=== PATIENT | male | born 1955 | race Hispanic/Latino ===

== ENCOUNTER → 2019-03-03 | Outpatient (RCR) | payer BC | LOC: PT 07:35 | PROVIDERS: ATTEND Neurological Surgery | DX: M47.897 Other spondylosis, lumbosacral region (principal) ==

== ENCOUNTER 2022-07-22 08:04 | Emergency (ER) | payer BC, MEDICARE ==
[~2022-07-22] VITALS: Ht 170.2 cm; Wt 87.3 kg
[2022-07-22] MEDS ORDERED: LOSARTAN POTASS25 MG PO (08:24)
[2022-07-22] MEDS ORDERED: ELIMITE60 GM TOP (08:31)
== END 2022-07-22 08:38 | disposition home or self-care (01) ==
LOC: FSED 08:24
DX: R21 Rash and other nonspecific skin eruption (principal); I10 Essential (primary) hypertension
CPT/HCPCS: 99283